=== PATIENT | male | born 1955 | race Caucasian/White ===

== ENCOUNTER 2018-04-24 09:52 | Inpatient (IN) | payer BC ==
[2018-04-24] MEDS: SOD CHLORIDE 0.9% 1,000 ML IV (10:13)
[2018-04-24 10:27] LABS: ADD MAN DIFF? NO
[2018-04-24 10:30] LABS: BASOPHIL # 0.1 10^3/ul (0.0-0.1); BASOPHILS % 0.6 % (0.0-2.0); EOSINOPHILS # 0.1 10^3/ul (0.0-0.5); EOSINOPHILS % 0.7 % (0.0-7.0); HEMATOCRIT 33.8 % (42.0-52.0); HEMOGLOBIN 11.3 g/dl (14.0-18.0); LYMPHOCYTES % 6.9 % (15.0-51.0); MEAN CORPUSCULAR HEMOGLOBIN 29.8 pg (29.0-33.0); MEAN CORPUSCULAR HGB CONC 33.4 g/dl (32.0-37.0); MEAN CORPUSCULAR VOLUME 89.2 fl (82.0-101.0); MEAN PLATELET VOLUME 9.3 fl (7.4-10.4); MONOCYTE # 0.9 10^3/ul (0.3-0.9); MONOCYTES % 6.1 % (0.0-11.0); NEUTROPHIL # 11.8 10^3/ul (1.6-7.5); NEUTROPHILS % 84.8 % (39.0-77.0); PLATELET COUNT 214 10^3/UL (140-415); RED BLOOD COUNT 3.79 10^6/ul (4.70-6.10); RED CELL DISTRIBUTION WIDTH 14.4 % (11.5-14.5)
[2018-04-24 10:51] LABS: INR 1.08; PROTIME 14.1 Sec (11.9-14.9); PT RATIO 1.1
[2018-04-24 10:52] LABS: PARTIAL THROMBOPLASTIN TIME 27.9 Sec (23.0-35.0)
[2018-04-24 10:57] LABS: ALANINE AMINOTRANSFERASE 30 IU/L (13-69); ALBUMIN 3.9 g/dl (3.3-4.9); ALBUMIN/GLOBULIN RATIO 1.05; ALKALINE PHOSPHATASE 81 IU/L (42-121); ANION GAP 16 (8-16); ASPARTATE AMINO TRANSFERASE 28 IU/L (15-46); BILIRUBIN,INDIRECT 0.8 mg/dl (0-1.1); BILIRUBIN,TOTAL 0.8 mg/dl (0.2-1.3); BLOOD UREA NITROGEN 20 mg/dl (7-20); CALCIUM 9.2 mg/dl (8.4-10.2); CARBON DIOXIDE 24 mmol/L (21-31); CHLORIDE 103 mmol/L (97-110); CREATININE 0.93 mg/dl (0.61-1.24); GLUCOSE 151 mg/dl (70-220); LIPASE 17 U/L (23-300); POTASSIUM 4.4 mmol/L (3.5-5.1); SODIUM 139 mmol/L (135-144); TOTAL PROTEIN 7.6 g/dl (6.1-8.1)
[2018-04-24] MEDS: HYDROmorphONE 1 MG/ML SYG IV (11:01)
[2018-04-24] MEDS: ONDANSETRON 4 MG INJ IV ×2 (11:01→13:31)
[2018-04-24 11:10] LABS: TROPONIN-I < 0.012 ng/ml (0.000-0.120)
[2018-04-24] MEDS: SOD CHLORIDE 0.9% 100 ML (11:56)
[2018-04-24] MEDS: IOHEXOL 350MG/ML 50 ML BTL (11:57)
[2018-04-24] MEDS: IOHEXOL 100 ML (11:57)
[2018-04-24] MEDS ORDERED: APIXABAN 5 MG TABLET PO (13:00)
[2018-04-24] MEDS ORDERED: ACETAMINOPHEN 325 MG TAB PO (13:30)
[2018-04-24] MEDS: ENOXAPARIN 60 MG/0.6 ML SYG SC (13:31)
[2018-04-24] MEDS: HYDROmorphONE 2 MG/ML SYG IV (13:32)
[2018-04-24] MEDS ORDERED: METHOTREXATE SQ (16:00)
[2018-04-24] MEDS ORDERED: HEPARIN 25000 UNITS/250 ML 250 ML IV (16:00)
[2018-04-24] MEDS ORDERED: DOCUSATE SODIUM 100 MG CAP PO ×2 (16:00→16:30)
[2018-04-24] MEDS ORDERED: DIPHENHYDRAMINE 25 MG CAP PO (16:00)
[2018-04-24] MEDS ORDERED: morphine 2 MG INJ IV (16:30)
[2018-04-24] MEDS ORDERED: MAGNESIUM HYDROXIDE 30ML CUP PO (16:30)
[2018-04-24] MEDS ORDERED: HYDROCODONE/APAP (5/325) TAB PO ×2 (16:30)
[2018-04-24] MEDS ORDERED: NACL 0.9% 3 ML SYG IV (16:30)
[2018-04-24] MEDS ORDERED: BISACODYL 10 MG SUPP PR (16:30)
[2018-04-24] MEDS ORDERED: ACETAMINOPHEN 650 MG SUPP PR (16:30)
[2018-04-24] MEDS ORDERED: ONDANSETRON 4 MG INJ IV (16:30)
[2018-04-24 16:58] LABS: ADD MAN DIFF? NO
[2018-04-24] MEDS ORDERED: ALBUTEROL HFA 8 GM INHALER INH (17:00)
[2018-04-24] MEDS ORDERED: ALBUTEROL/IPRATROPIUM (NEB) 3 ML AMP HHN (17:00)
[2018-04-24 17:02] LABS: BASOPHIL # 0.1 10^3/ul (0.0-0.1); BASOPHILS % 0.6 % (0.0-2.0); EOSINOPHILS # 0.1 10^3/ul (0.0-0.5); EOSINOPHILS % 0.6 % (0.0-7.0); HEMATOCRIT 32.4 % (42.0-52.0); HEMOGLOBIN 10.8 g/dl (14.0-18.0); LYMPHOCYTES # 0.8 10^3/ul (0.8-2.9); LYMPHOCYTES % 7.1 % (15.0-51.0); MEAN CORPUSCULAR HEMOGLOBIN 29.8 pg (29.0-33.0); MEAN CORPUSCULAR HGB CONC 33.3 g/dl (32.0-37.0); MEAN CORPUSCULAR VOLUME 89.5 fl (82.0-101.0); MEAN PLATELET VOLUME 9.4 fl (7.4-10.4); MONOCYTE # 0.9 10^3/ul (0.3-0.9); MONOCYTES % 7.1 % (0.0-11.0); NEUTROPHILS % 83.8 % (39.0-77.0); PLATELET COUNT 209 10^3/UL (140-415); RED BLOOD COUNT 3.62 10^6/ul (4.70-6.10); RED CELL DISTRIBUTION WIDTH 14.5 % (11.5-14.5)
[2018-04-24 17:02] LABS: WHITE BLOOD COUNT 11.9 10^3/ul (4.8-10.8)
[2018-04-24] MEDS: ACETAMINOPHEN 325 MG TAB PO ×2 (17:14→22:30)
[2018-04-24 17:21] LABS: INR 1.07; PT RATIO 1.1
[2018-04-24 17:22] LABS: PARTIAL THROMBOPLASTIN TIME 39.3 Sec (23.0-35.0)
[2018-04-24] MEDS: CREON (24K-76K-120K) 1 CAP PO (17:55)
[2018-04-24] MEDS: HEPARIN 1000 UNITS/ML 10 ML INJ IV (18:34)
[2018-04-24] MEDS: HEPARIN 25000 UNITS/250 ML 250 ML IV (18:44)
[2018-04-24] MEDS: TIZANIDINE 4 MG TAB PO (19:45)
[2018-04-24] MEDS: oxyCODONE 5 MG TAB PO (20:10)
[2018-04-24] MEDS: ACETYLCYSTEINE 20% 4 ML VIAL NEB (20:30)
[2018-04-24] MEDS: ALBUTEROL/IPRATROPIUM (NEB) 3 ML AMP HHN (20:53)
[2018-04-24] MEDS: oxyCODONE (CR) 20 MG TAB [oxyCONTIN] PO (21:00)
[2018-04-24] MEDS: PREGABALIN 75 MG CAP PO (21:28)
[2018-04-24] MEDS: MONTELUKAST 10 MG TAB PO (21:29)
[2018-04-24] MEDS: TRELEGY ELLIPTA INH (23:00)
[2018-04-24] MEDS ORDERED: SPECIAL NON-STANDARD MEDICATION INH (23:00)
[2018-04-25 01:31] LABS: PARTIAL THROMBOPLASTIN TIME 138.2 Sec (23.0-35.0)
[2018-04-25] MEDS: oxyCODONE 5 MG TAB PO ×4 (02:07→23:46)
[2018-04-25] MEDS: ALBUTEROL/IPRATROPIUM (NEB) 3 ML AMP HHN ×4 (02:33→20:55)
[2018-04-25 05:02] LABS: ADD MAN DIFF? NO
[2018-04-25 05:06] LABS: BASOPHIL # 0.1 10^3/ul (0.0-0.1); BASOPHILS % 0.9 % (0.0-2.0); EOSINOPHILS # 0.4 10^3/ul (0.0-0.5); EOSINOPHILS % 3.6 % (0.0-7.0); HEMATOCRIT 29.5 % (42.0-52.0); LYMPHOCYTES # 1.7 10^3/ul (0.8-2.9); LYMPHOCYTES % 15.2 % (15.0-51.0); MEAN CORPUSCULAR HEMOGLOBIN 29.9 pg (29.0-33.0); MEAN CORPUSCULAR HGB CONC 33.9 g/dl (32.0-37.0); MEAN CORPUSCULAR VOLUME 88.3 fl (82.0-101.0); MEAN PLATELET VOLUME 9.3 fl (7.4-10.4); MONOCYTES % 9.3 % (0.0-11.0); NEUTROPHIL # 7.7 10^3/ul (1.6-7.5); NEUTROPHILS % 70.1 % (39.0-77.0); PLATELET COUNT 198 10^3/UL (140-415); RED BLOOD COUNT 3.34 10^6/ul (4.70-6.10); RED CELL DISTRIBUTION WIDTH 14.8 % (11.5-14.5)
[2018-04-25] MEDS: PANTOPRAZOLE 40 MG INJ IV (05:34)
[2018-04-25 05:50] LABS: PARTIAL THROMBOPLASTIN TIME 76.2 Sec (23.0-35.0)
[2018-04-25] MEDS: LEVOTHYROXINE 50 MCG TAB PO (06:06)
[2018-04-25 07:20] LABS: HEMOGLOBIN A1C 5.5 % (0-5.9)
[2018-04-25] MEDS: CREON (24K-76K-120K) 1 CAP PO ×3 (07:50→17:45)
[2018-04-25 08:11] LABS: ALANINE AMINOTRANSFERASE 18 IU/L (13-69); ALBUMIN 4.1 g/dl (3.3-4.9); ALBUMIN/GLOBULIN RATIO 1.28; ALKALINE PHOSPHATASE 85 IU/L (42-121); ANION GAP 15 (8-16); ASPARTATE AMINO TRANSFERASE 22 IU/L (15-46); BILIRUBIN,INDIRECT 0.7 mg/dl (0-1.1); BILIRUBIN,TOTAL 0.7 mg/dl (0.2-1.3); BLOOD UREA NITROGEN 24 mg/dl (7-20); CALCIUM 8.9 mg/dl (8.4-10.2); CARBON DIOXIDE 21 mmol/L (21-31); CHLORIDE 104 mmol/L (97-110); CHOL/HDL RATIO 3.3 RATIO; CHOLESTEROL 121 mg/dl (100-200); CREATININE 1.08 mg/dl (0.61-1.24); GLUCOSE 132 mg/dl (70-220); HDL CHOLESTEROL 36 mg/dl (30-78); LDL CHOLESTEROL,CALCULATED 60 mg/dl; MAGNESIUM 1.9 mg/dl (1.7-2.5); PHOSPHORUS 4.8 mg/dl (2.5-4.9); POTASSIUM 4.2 mmol/L (3.5-5.1); SODIUM 136 mmol/L (135-144); TOTAL PROTEIN 7.3 g/dl (6.1-8.1); TRIGLYCERIDES 127 mg/dl (0-149)
[2018-04-25 08:47] LABS: FREE THYROXINE INDEX (Calc) 2.09 ug/ml (0.65-3.89); T3 UPTAKE 40.9 % (23.5-40.5); T4 (THYROXINE) 5.1 ug/dl (5.5-11.0)
[2018-04-25] MEDS: ROFLUMILAST 500 MCG TABLET PO (08:48)
[2018-04-25] MEDS: FOLIC ACID 1 MG TAB PO (08:48)
[2018-04-25] MEDS: CELECOXIB 200 MG CAP PO (08:48)
[2018-04-25] MEDS: MULTIVITAMINS THERAPEUTIC TAB PO (08:48)
[2018-04-25] MEDS: LOSARTAN 50 MG TAB PO ×2 (08:50→12:09)
[2018-04-25] MEDS: FLUTICASONE/VILANTEROL 200-25 INH DEVICE INH (08:56)
[2018-04-25] MEDS: oxyCODONE (CR) 20 MG TAB [oxyCONTIN] PO ×3 (08:57→20:55)
[2018-04-25] MEDS ORDERED: ROFLUMILAST 500 MCG PO (09:00)
[2018-04-25 09:01] LABS: THYROID STIMULATING HORMONE 0.978 MIU/L (0.465-4.680)
[2018-04-25] MEDS: ACETYLCYSTEINE 20% 4 ML VIAL NEB ×3 (09:21→20:55)
[2018-04-25 10:03] LABS: IRON 47 ug/dl (35-150)
[2018-04-25 10:15] LABS: % IRON SATURATION 12 % SAT (22-52); TOTAL IRON BINDING CAPACITY 381 ug/dl (241-421)
[2018-04-25] MEDS: HEPARIN 25000 UNITS/250 ML 250 ML IV ×3 (10:15→18:42)
[2018-04-25 10:40] LABS: ERYTHROCYTE SEDIMENTATION RATE 23 mm/Hr (0-20)
[2018-04-25 12:09] LABS: PARTIAL THROMBOPLASTIN TIME 54.1 Sec (23.0-35.0)
[2018-04-25] MEDS: AMLODIPINE 5 MG TAB PO (12:10)
[2018-04-25] MEDS: HEPARIN 1000 UNITS/ML 10 ML INJ IV (14:22)
[2018-04-25] MEDS: ACETAMINOPHEN 325 MG TAB PO (14:29)
[2018-04-25 14:58] LABS: FERRITIN 67.4 ng/ml (11.1-264.0)
[2018-04-25 15:28] LABS: FOLATE 18.7 ng/ml (2.8-20.0)
[2018-04-25] MEDS: WARFARIN 2.5 MG TAB PO (16:52)
[2018-04-25] MEDS: WARFARIN 5 MG TAB PO (16:52)
[2018-04-25] MEDS ORDERED: WARFARIN 7.5 MG TAB PO (17:00)
[2018-04-25 18:01] LABS: PARTIAL THROMBOPLASTIN TIME 127.8 Sec (23.0-35.0)
[2018-04-25] MEDS: PREGABALIN 75 MG CAP PO (21:02)
[2018-04-25] MEDS: MONTELUKAST 10 MG TAB PO (21:02)
[2018-04-25] MEDS: ZOLPIDEM 5 MG TAB PO (22:22)
[2018-04-25] MEDS: TIZANIDINE 4 MG TAB PO (22:26)
[2018-04-25] MEDS: TRELEGY ELLIPTA INH (23:00)
[2018-04-25 23:12] LABS: PARTIAL THROMBOPLASTIN TIME 28.6 Sec (23.0-35.0)
[2018-04-26] MEDS: ACETAMINOPHEN 325 MG TAB PO ×2 (04:08→20:49)
[2018-04-26] MEDS: ALBUTEROL/IPRATROPIUM (NEB) 3 ML AMP HHN ×4 (04:09→20:14)
[2018-04-26] MEDS: PANTOPRAZOLE 40 MG INJ IV (05:28)
[2018-04-26] MEDS: oxyCODONE 5 MG TAB PO ×3 (05:28→18:44)
[2018-04-26 06:29] LABS: PARTIAL THROMBOPLASTIN TIME 42.1 Sec (23.0-35.0)
[2018-04-26] MEDS: LEVOTHYROXINE 50 MCG TAB PO (06:53)
[2018-04-26] MEDS: HEPARIN 1000 UNITS/ML 10 ML INJ IV ×2 (06:55)
[2018-04-26] MEDS: MULTIVITAMINS THERAPEUTIC TAB PO (08:23)
[2018-04-26] MEDS: FOLIC ACID 1 MG TAB PO (08:23)
[2018-04-26] MEDS: CELECOXIB 200 MG CAP PO (08:23)
[2018-04-26] MEDS: ROFLUMILAST 500 MCG TABLET PO (08:25)
[2018-04-26] MEDS: LOSARTAN 50 MG TAB PO (08:26)
[2018-04-26] MEDS: ACETYLCYSTEINE 20% 4 ML VIAL NEB ×3 (08:36→20:14)
[2018-04-26] MEDS: HEPARIN 25000 UNITS/250 ML 250 ML IV (10:47)
[2018-04-26 12:22] LABS: ANA SCREEN NEGATIVE (NEGATIVE)
[2018-04-26 12:34] LABS: PARTIAL THROMBOPLASTIN TIME 66.6 Sec (23.0-35.0)
[2018-04-26] MEDS: HYDROXYCHLOROQUINE 200 MG TAB PO ×2 (13:29→20:25)
[2018-04-26] MEDS: METHOTREXATE 50 MG INJ SC (13:30)
[2018-04-26 14:01] LABS: INR 1.09; PROTIME 14.2 Sec (11.9-14.9); PT RATIO 1.1
[2018-04-26] MEDS: DEXTROSE 5% IV (14:24)
[2018-04-26] MEDS: HEPARIN IV (14:24)
[2018-04-26] MEDS ORDERED: OCTREOTIDE IVPB (17:00)
[2018-04-26] MEDS ORDERED: SOD CHLORIDE 0.9% IVPB (17:00)
[2018-04-26] MEDS: SOD FERRIC GLUC COMPLX 125 MG in SOD CHLORIDE 0.9% 100 ML IVPB (17:09)
[2018-04-26] MEDS: WARFARIN 5 MG TAB PO (17:11)
[2018-04-26] MEDS: WARFARIN 2.5 MG TAB PO (17:12)
[2018-04-26] MEDS: EPOETIN 10000 UNITS/ML VIAL (ONCOLOGY) SC (17:17)
[2018-04-26 17:36] LABS: HOMOCYSTEINE - CARDIOVASCULAR 17.5 umol/L (<11.4)
[2018-04-26] MEDS: OCTREOTIDE 100 MCG INJ SC (18:16)
[2018-04-26] MEDS: SENNA TAB PO (20:25)
[2018-04-26] MEDS: PREGABALIN 75 MG CAP PO (20:25)
[2018-04-26] MEDS: MONTELUKAST 10 MG TAB PO (20:26)
[2018-04-26] MEDS: FLUTICASONE/VILANTEROL 200-25 INH DEVICE INH (21:00)
[2018-04-26 21:25] LABS: OCCULT BLOOD STOOL NEGATIVE (NEGATIVE)
[2018-04-26 21:53] LABS: PARTIAL THROMBOPLASTIN TIME > 180.0 Sec (23.0-35.0)
[2018-04-26 22:08] LABS: ERYTHROPOIETIN 26.2 mIU/mL (2.6-18.5)
[2018-04-26] MEDS: ZOLPIDEM 5 MG TAB PO (22:41)
[2018-04-27] MEDS: oxyCODONE 5 MG TAB PO ×4 (00:32→22:06)
[2018-04-27] MEDS: OCTREOTIDE 100 MCG INJ SC ×4 (00:33→22:39)
[2018-04-27 01:10] LABS: PARTIAL THROMBOPLASTIN TIME 44.7 Sec (23.0-35.0)
[2018-04-27 03:05] LABS: PARTIAL THROMBOPLASTIN TIME 30.7 Sec (23.0-35.0)
[2018-04-27] MEDS: LEVOTHYROXINE 50 MCG TAB PO (06:47)
[2018-04-27] MEDS: PANTOPRAZOLE 40 MG INJ IV (06:47)
[2018-04-27] MEDS: ALBUTEROL/IPRATROPIUM (NEB) 3 ML AMP HHN ×3 (07:35→19:45)
[2018-04-27] MEDS: ACETYLCYSTEINE 20% 4 ML VIAL NEB ×3 (07:39→19:44)
[2018-04-27 08:16] LABS: ADD MAN DIFF? NO
[2018-04-27 08:19] LABS: WHITE BLOOD COUNT 8.7 10^3/ul (4.8-10.8)
[2018-04-27 08:19] LABS: BASOPHIL # 0.1 10^3/ul (0.0-0.1); BASOPHILS % 0.7 % (0.0-2.0); EOSINOPHILS # 0.3 10^3/ul (0.0-0.5); EOSINOPHILS % 2.9 % (0.0-7.0); HEMATOCRIT 28.4 % (42.0-52.0); HEMOGLOBIN 9.3 g/dl (14.0-18.0); LYMPHOCYTES # 1.2 10^3/ul (0.8-2.9); LYMPHOCYTES % 14.2 % (15.0-51.0); MEAN CORPUSCULAR HEMOGLOBIN 29.2 pg (29.0-33.0); MEAN CORPUSCULAR HGB CONC 32.7 g/dl (32.0-37.0); MEAN CORPUSCULAR VOLUME 89.3 fl (82.0-101.0); MEAN PLATELET VOLUME 9.2 fl (7.4-10.4); MONOCYTE # 0.8 10^3/ul (0.3-0.9); MONOCYTES % 9.2 % (0.0-11.0); NEUTROPHIL # 6.3 10^3/ul (1.6-7.5); NEUTROPHILS % 72.3 % (39.0-77.0); PLATELET COUNT 206 10^3/UL (140-415); RED BLOOD COUNT 3.18 10^6/ul (4.70-6.10); RED CELL DISTRIBUTION WIDTH 15.1 % (11.5-14.5)
[2018-04-27 08:49] LABS: ALANINE AMINOTRANSFERASE 34 IU/L (13-69); ALBUMIN 3.2 g/dl (3.3-4.9); ALKALINE PHOSPHATASE 74 IU/L (42-121); ANION GAP 13 (8-16); ASPARTATE AMINO TRANSFERASE 28 IU/L (15-46); BILIRUBIN,INDIRECT 0.8 mg/dl (0-1.1); BILIRUBIN,TOTAL 0.8 mg/dl (0.2-1.3); BLOOD UREA NITROGEN 16 mg/dl (7-20); CALCIUM 9.2 mg/dl (8.4-10.2); CARBON DIOXIDE 24 mmol/L (21-31); CHLORIDE 104 mmol/L (97-110); CREATININE 0.78 mg/dl (0.61-1.24); GLUCOSE 117 mg/dl (70-220); POTASSIUM 4.1 mmol/L (3.5-5.1); SODIUM 137 mmol/L (135-144); TOTAL PROTEIN 6.4 g/dl (6.1-8.1)
[2018-04-27] MEDS: SENNA TAB PO ×2 (08:53→20:39)
[2018-04-27] MEDS: HYDROXYCHLOROQUINE 200 MG TAB PO ×2 (08:54→20:39)
[2018-04-27] MEDS: CELECOXIB 200 MG CAP PO (08:54)
[2018-04-27] MEDS: LOSARTAN 50 MG TAB PO (08:54)
[2018-04-27] MEDS: FOLIC ACID 1 MG TAB PO (08:54)
[2018-04-27] MEDS: MULTIVITAMINS THERAPEUTIC TAB PO (08:54)
[2018-04-27] MEDS: ROFLUMILAST 500 MCG TABLET PO (08:56)
[2018-04-27 09:22] LABS: INR 1.11; PROTIME 14.5 Sec (11.9-14.9); PT RATIO 1.1
[2018-04-27 09:24] LABS: PARTIAL THROMBOPLASTIN TIME 104.3 Sec (23.0-35.0)
[2018-04-27] MEDS: HEPARIN 25000 UNITS/250 ML 250 ML IV (14:55)
[2018-04-27 16:26] LABS: PARTIAL THROMBOPLASTIN TIME 107.2 Sec (23.0-35.0)
[2018-04-27] MEDS: SOD FERRIC GLUC COMPLX 125 MG in SOD CHLORIDE 0.9% 100 ML IVPB (16:53)
[2018-04-27] MEDS: WARFARIN 2.5 MG TAB PO (16:54)
[2018-04-27] MEDS: WARFARIN 5 MG TAB PO (16:54)
[2018-04-27] MEDS: MONTELUKAST 10 MG TAB PO (20:39)
[2018-04-27] MEDS: PREGABALIN 75 MG CAP PO (20:40)
[2018-04-27] MEDS: FLUTICASONE/VILANTEROL 200-25 INH DEVICE INH (20:50)
[2018-04-27 22:11] LABS: CARDIOLIPIN AB - IGA <11 APL; CARDIOLIPIN AB - IGG <14 GPL; CARDIOLIPIN AB - IGM <12 MPL
[2018-04-27] MEDS: ZOLPIDEM 5 MG TAB PO (22:39)
[2018-04-27 22:48] LABS: PARTIAL THROMBOPLASTIN TIME 162.4 Sec (23.0-35.0)
[2018-04-28] MEDS: ALBUTEROL/IPRATROPIUM (NEB) 3 ML AMP HHN ×4 (01:50→19:25)
[2018-04-28] MEDS: ACETYLCYSTEINE 20% 4 ML VIAL NEB ×4 (01:55→19:25)
[2018-04-28 03:15] LABS: ADD MAN DIFF? NO
[2018-04-28] MEDS: ACETAMINOPHEN 325 MG TAB PO (03:17)
[2018-04-28] MEDS: HEPARIN 25000 UNITS/250 ML 250 ML IV ×2 (03:21→17:32)
[2018-04-28 03:30] LABS: BASOPHIL # 0.1 10^3/ul (0.0-0.1); BASOPHILS % 0.8 % (0.0-2.0); EOSINOPHILS # 0.2 10^3/ul (0.0-0.5); HEMATOCRIT 28.6 % (42.0-52.0); HEMOGLOBIN 9.4 g/dl (14.0-18.0); LYMPHOCYTES # 1.3 10^3/ul (0.8-2.9); LYMPHOCYTES % 16.9 % (15.0-51.0); MEAN CORPUSCULAR HEMOGLOBIN 29.5 pg (29.0-33.0); MEAN CORPUSCULAR HGB CONC 32.9 g/dl (32.0-37.0); MEAN CORPUSCULAR VOLUME 89.7 fl (82.0-101.0); MEAN PLATELET VOLUME 9.3 fl (7.4-10.4); MONOCYTE # 0.6 10^3/ul (0.3-0.9); MONOCYTES % 8.7 % (0.0-11.0); NEUTROPHIL # 5.1 10^3/ul (1.6-7.5); NEUTROPHILS % 69.5 % (39.0-77.0); PLATELET COUNT 226 10^3/UL (140-415); RED BLOOD COUNT 3.19 10^6/ul (4.70-6.10); RED CELL DISTRIBUTION WIDTH 15.1 % (11.5-14.5)
[2018-04-28 03:30] LABS: WHITE BLOOD COUNT 7.4 10^3/ul (4.8-10.8)
[2018-04-28 03:38] LABS: INR 1.17; PROTIME 15.1 Sec (11.9-14.9); PT RATIO 1.2
[2018-04-28 03:39] LABS: ALANINE AMINOTRANSFERASE 43 IU/L (13-69); ALBUMIN 3.4 g/dl (3.3-4.9); ALBUMIN/GLOBULIN RATIO 1.03; ALKALINE PHOSPHATASE 76 IU/L (42-121); ANION GAP 15 (8-16); ASPARTATE AMINO TRANSFERASE 36 IU/L (15-46); BILIRUBIN,INDIRECT 0.6 mg/dl (0-1.1); BILIRUBIN,TOTAL 0.6 mg/dl (0.2-1.3); BLOOD UREA NITROGEN 14 mg/dl (7-20); CALCIUM 9.2 mg/dl (8.4-10.2); CARBON DIOXIDE 24 mmol/L (21-31); CHLORIDE 105 mmol/L (97-110); CREATININE 0.75 mg/dl (0.61-1.24); GLUCOSE 124 mg/dl (70-220); POTASSIUM 3.9 mmol/L (3.5-5.1); SODIUM 140 mmol/L (135-144); TOTAL PROTEIN 6.7 g/dl (6.1-8.1)
[2018-04-28 03:47] LABS: PARTIAL THROMBOPLASTIN TIME 75.5 Sec (23.0-35.0)
[2018-04-28] MEDS: LEVOTHYROXINE 50 MCG TAB PO (06:37)
[2018-04-28] MEDS: OCTREOTIDE 100 MCG INJ SC ×3 (06:37→22:12)
[2018-04-28] MEDS: PANTOPRAZOLE 40 MG INJ IV (06:37)
[2018-04-28] MEDS: oxyCODONE 5 MG TAB PO ×2 (06:38→22:16)
[2018-04-28] MEDS: SENNA TAB PO ×2 (09:34→20:49)
[2018-04-28] MEDS: FOLIC ACID 1 MG TAB PO (09:34)
[2018-04-28] MEDS: ROFLUMILAST 500 MCG TABLET PO (09:34)
[2018-04-28] MEDS: LOSARTAN 50 MG TAB PO (09:34)
[2018-04-28] MEDS: CELECOXIB 200 MG CAP PO (09:34)
[2018-04-28] MEDS: MULTIVITAMINS THERAPEUTIC TAB PO (09:35)
[2018-04-28] MEDS: HYDROXYCHLOROQUINE 200 MG TAB PO ×2 (09:35→20:49)
[2018-04-28 11:15] LABS: PARTIAL THROMBOPLASTIN TIME 97.9 Sec (23.0-35.0)
[2018-04-28] MEDS: WARFARIN 7.5 MG TAB PO (17:36)
[2018-04-28] MEDS: SOD FERRIC GLUC COMPLX 125 MG in SOD CHLORIDE 0.9% 100 ML IVPB (17:36)
[2018-04-28] MEDS: PREGABALIN 75 MG CAP PO (20:48)
[2018-04-28] MEDS: MONTELUKAST 10 MG TAB PO (20:49)
[2018-04-28] MEDS: FLUTICASONE/VILANTEROL 200-25 INH DEVICE INH ×2 (20:51→21:00)
[2018-04-28] MEDS: ZOLPIDEM 5 MG TAB PO (22:17)
[2018-04-29] MEDS: ACETYLCYSTEINE 20% 4 ML VIAL NEB ×4 (01:20→19:55)
[2018-04-29] MEDS: ALBUTEROL/IPRATROPIUM (NEB) 3 ML AMP HHN ×4 (01:20→19:55)
[2018-04-29 05:26] LABS: ADD MAN DIFF? NO
[2018-04-29 05:33] LABS: BASOPHIL # 0.1 10^3/ul (0.0-0.1); BASOPHILS % 0.8 % (0.0-2.0); EOSINOPHILS # 0.3 10^3/ul (0.0-0.5); EOSINOPHILS % 2.7 % (0.0-7.0); HEMATOCRIT 27.4 % (42.0-52.0); LYMPHOCYTES # 1.6 10^3/ul (0.8-2.9); LYMPHOCYTES % 15.7 % (15.0-51.0); MEAN CORPUSCULAR HEMOGLOBIN 29.6 pg (29.0-33.0); MEAN CORPUSCULAR HGB CONC 32.8 g/dl (32.0-37.0); MEAN CORPUSCULAR VOLUME 90.1 fl (82.0-101.0); MEAN PLATELET VOLUME 9.4 fl (7.4-10.4); MONOCYTE # 0.8 10^3/ul (0.3-0.9); NEUTROPHIL # 7.2 10^3/ul (1.6-7.5); NEUTROPHILS % 71.9 % (39.0-77.0); PLATELET COUNT 238 10^3/UL (140-415); RED BLOOD COUNT 3.04 10^6/ul (4.70-6.10)
[2018-04-29] MEDS: oxyCODONE 5 MG TAB PO ×3 (05:42→22:59)
[2018-04-29] MEDS: PANTOPRAZOLE 40 MG INJ IV (05:42)
[2018-04-29] MEDS: OCTREOTIDE 100 MCG INJ SC ×3 (05:46→21:30)
[2018-04-29 06:20] LABS: INR 1.33; PROTIME 16.7 Sec (11.9-14.9); PT RATIO 1.3
[2018-04-29] MEDS: FOLIC ACID 1 MG TAB PO (08:46)
[2018-04-29] MEDS: LEVOTHYROXINE 50 MCG TAB PO (08:46)
[2018-04-29] MEDS: ROFLUMILAST 500 MCG TABLET PO (08:47)
[2018-04-29] MEDS: MULTIVITAMINS THERAPEUTIC TAB PO (08:47)
[2018-04-29] MEDS: CELECOXIB 200 MG CAP PO (08:47)
[2018-04-29] MEDS: SENNA TAB PO ×2 (08:47→21:28)
[2018-04-29] MEDS: HYDROXYCHLOROQUINE 200 MG TAB PO ×2 (08:48→21:28)
[2018-04-29] MEDS: LOSARTAN 50 MG TAB PO (08:49)
[2018-04-29] MEDS: HEPARIN 25000 UNITS/250 ML 250 ML IV ×2 (08:53→23:02)
[2018-04-29] MEDS ORDERED: WARFARIN 7.5 MG TAB PO (17:00)
[2018-04-29] MEDS: EPOETIN 10000 UNITS/ML VIAL (ONCOLOGY) SC (18:18)
[2018-04-29] MEDS: FLUTICASONE/VILANTEROL 200-25 INH DEVICE INH ×2 (21:00→21:28)
[2018-04-29] MEDS: PREGABALIN 75 MG CAP PO (21:28)
[2018-04-29] MEDS: MONTELUKAST 10 MG TAB PO (21:28)
[2018-04-29] MEDS: ZOLPIDEM 5 MG TAB PO (22:58)
[2018-04-29] MEDS: ACETAMINOPHEN 325 MG TAB PO (22:59)
[2018-04-29] MEDS ORDERED: morphine LIQ (10 MG/5 ML) CUP PO (23:30)
[2018-04-30 05:20] LABS: PROTIME 17.4 Sec (11.9-14.9); PT RATIO 1.4
[2018-04-30 05:21] LABS: PARTIAL THROMBOPLASTIN TIME 66.6 Sec (23.0-35.0)
[2018-04-30] MEDS: OCTREOTIDE 100 MCG INJ SC ×3 (05:43→22:39)
[2018-04-30] MEDS: PANTOPRAZOLE 40 MG INJ IV (05:43)
[2018-04-30] MEDS: LEVOTHYROXINE 50 MCG TAB PO (06:18)
[2018-04-30 07:51] LABS: FACTOR VIII ACTIVITY 147 % normal (50-180)
[2018-04-30] MEDS: CELECOXIB 200 MG CAP PO (08:20)
[2018-04-30] MEDS: FOLIC ACID 1 MG TAB PO (08:24)
[2018-04-30] MEDS: HYDROXYCHLOROQUINE 200 MG TAB PO ×2 (08:24→20:39)
[2018-04-30] MEDS: LOSARTAN 50 MG TAB PO (08:24)
[2018-04-30] MEDS: ROFLUMILAST 500 MCG TABLET PO (08:24)
[2018-04-30] MEDS: MULTIVITAMINS THERAPEUTIC TAB PO (08:25)
[2018-04-30] MEDS: SENNA TAB PO ×2 (08:25→20:39)
[2018-04-30] MEDS: oxyCODONE 5 MG TAB PO ×3 (08:26→20:39)
[2018-04-30] MEDS: ACETAMINOPHEN 325 MG TAB PO (08:26)
[2018-04-30] MEDS: ALBUTEROL/IPRATROPIUM (NEB) 3 ML AMP HHN ×3 (08:43→19:43)
[2018-04-30] MEDS: ACETYLCYSTEINE 20% 4 ML VIAL NEB ×3 (08:43→19:43)
[2018-04-30] MEDS: APIXABAN 5 MG TABLET PO ×2 (09:26→20:39)
[2018-04-30] MEDS: MONTELUKAST 10 MG TAB PO (20:39)
[2018-04-30] MEDS: FLUTICASONE/VILANTEROL 200-25 INH DEVICE INH (20:40)
[2018-04-30] MEDS: PREGABALIN 75 MG CAP PO (22:39)
[2018-04-30] MEDS: ZOLPIDEM 5 MG TAB PO (22:39)
[2018-05-01] MEDS: ALBUTEROL/IPRATROPIUM (NEB) 3 ML AMP HHN ×2 (01:20→09:42)
[2018-05-01] MEDS: ACETYLCYSTEINE 20% 4 ML VIAL NEB ×2 (01:20→09:42)
[2018-05-01] MEDS: oxyCODONE 5 MG TAB PO ×2 (02:37→09:03)
[2018-05-01] MEDS: LEVOTHYROXINE 50 MCG TAB PO (06:25)
[2018-05-01] MEDS: PANTOPRAZOLE 40 MG INJ IV (06:25)
[2018-05-01] MEDS: OCTREOTIDE 100 MCG INJ SC (06:25)
[2018-05-01] MEDS: FOLIC ACID 1 MG TAB PO (09:00)
[2018-05-01] MEDS: HYDROXYCHLOROQUINE 200 MG TAB PO (09:00)
[2018-05-01] MEDS: MULTIVITAMINS THERAPEUTIC TAB PO (09:00)
[2018-05-01] MEDS: LOSARTAN 50 MG TAB PO (09:00)
[2018-05-01] MEDS: SENNA TAB PO (09:00)
[2018-05-01] MEDS: APIXABAN 5 MG TABLET PO (09:01)
[2018-05-01] MEDS: CELECOXIB 200 MG CAP PO (09:02)
[2018-05-01] MEDS: ROFLUMILAST 500 MCG TABLET PO (09:02)
== END 2018-05-01 11:44 | disposition home or self-care (01) | DRG 300 ==
LOC: MS1 04-27 19:13 → E/R 09:52 → MS1 13:27
DX: I82.412 Acute embolism and thrombosis of left femoral vein (principal); C78.89 Secondary malignant neoplasm of other digestive organs; I82.432 Acute embolism and thrombosis of left popliteal vein; D3A.00 Benign carcinoid tumor of unspecified site; Z86.711 Personal history of pulmonary embolism; I10 Essential (primary) hypertension; E78.5 Hyperlipidemia, unspecified; F32.9 Major depressive disorder, single episode, unspecified; D64.9 Anemia, unspecified; J45.909 Unspecified asthma, uncomplicated; G47.33 Obstructive sleep apnea (adult) (pediatric); Z86.718 Personal history of other venous thrombosis and embolism; M06.9 Rheumatoid arthritis, unspecified
CPT/HCPCS: 71275; 75635; 80053; 80061; 81240; 82270; 82607; 82668; 82728; 82746; 82941; 83036; 83090; 83540; 83690; 83735; 83890; 84100; 84260; 84436; 84443; 84479; 84484; 85025; 85240; 85300; 85302; 85305; 85610; 85613; 85651; 85730; 86038; 86147; 86850; 86900; 86901; 93005; 93970; 94640; 94664; 96374; 96375; 97110; 97116; 97162; 97530; 99285-25; J0885

== ENCOUNTER → 2018-08-26 | Outpatient (CLI) | payer BC | END | disposition home or self-care (01) | LOC: LAB 11:52 | DX: J20.9 Acute bronchitis, unspecified (principal); E34.0 Carcinoid syndrome | CPT/HCPCS: 87070 ==